=== PATIENT | female | born 1985 | race Caucasian/White ===

== ENCOUNTER 2018-12-25 14:07 | Emergency (ER) | payer OTHER ==
[2018-12-25 14:24] VITALS: BP 138/88
--- NOTE | 2018-12-25 15:22 | ED Physician Documentation ---
History of Present Illness - Stated complaint Stated Complaint: SORES ON LT LEG/RT ARM - Chief complaint Chief Complaint: Laceration - Additonal information Additional information: This is a 33 year old female who presents with over 1 week of several sores on her left upper leg, as well as a pustule on her right shoulder. She has a history of a past MRSA infection over her knee that was treated successfully with antibiotics. Her current lesions began in the absence of trauma or obvious MRSA exposure. She denies fever. One of the lesions has drained a small amount of pus. She is in minimal discomfort. Review of Systems Constitutional: denies: Fever Throat: denies: Oral lesions / sores Skin: reports: Lesions Immunocompromised: denies: Immunocompromised PD PAST MEDICAL HISTORY - Present Medications Home Medications: Ambulatory Orders Medication Instructions Recorded Confirmed RX: Doxycycline Hyclate 100 mg PO BID #20 tablet 12/25/18 RX: Spironolactone 100 mg PO 12/25/18 - Allergies Allergies/Adverse Reactions: Allergies Allergy/AdvReac Type Severity Reaction Status Date / Time No Known Drug Allergies Allergy Verified 12/25/18 14:24 PD ED PE NORMAL - Vitals Vital signs reviewed: Yes - General General: Alert and oriented X 3, No acute distress - HEENT HEENT: PERRL - Cardiac Cardiac: RRR, No murmur - Respiratory Respiratory: No respiratory distress - Abdomen Abdomen: Non distended - Derm Derm: Other (A 4mm pusutle is present over the right shoulder. Over the left upper thigh (exam performed with RN broaching machine operator, there are two 0.5-1cm slightly excoriated shallow ulcerations with minimal surrounding erythema and induration. No fluctuance, no drainage.) - Extremities Extremities: No deformity - Neuro Neuro: Alert and oriented X 3 - Psych Psych: Normal mood, Normal affect Results - Vitals Vitals: Vital Signs - 24 hr 12/25/18 14:22 Temperature 36.7 C Heart Rate 82 Respiratory 16 Rate Blood Pressure 138/88 H O2 Saturation 99 Oxygen O2 Source Room air PD MEDICAL DECISION MAKING - ED course Complexity details: considered differential ED course: Patient is presenting with several lesions that started as pustules. She has a history of MRSA skin infections and it is likely that these lesions are also due to MRSA. There are no signs of abscess or active purulent drainage from any of the lesions. Her vital signs are unremarkable and she is very well appearing. She is on spironolactone, making bactrim a poor choice for treatment, so we will treat with a course of doxycycline. I discussed hygiene, return precautions, and close follow up with her PCP. Patient agrees and was discharged home. Departure - Departure Disposition: 01 Home, Self Care Clinical Impression: Wound of skin Condition: Good Instructions: ED Wound Care Follow-Up: Your,PCP [Other] (In 1-2 weeks for recheck of wound) Prescriptions: RX: Doxycycline Hyclate 100 mg PO BID #20 tablet Comments: You were seen for infections on your skin, these are likely MRSA infections. Please take the entire antibiotic as instructed. Follow-up with your primary care provider. If you have worsening symptoms fever, or lesions that are growing significantly please return to [facility] department. Discharge Date/Time: 12/25/18 17:01
== END 2018-12-25 17:01 | disposition home or self-care (01) ==
LOC: ED 14:07
DX: L97.129 Non-pressure chronic ulcer of left thigh with unspecified severity (principal); L08.9 Local infection of the skin and subcutaneous tissue, unspecified; Z86.14 Personal history of Methicillin resistant Staphylococcus aureus infection
CPT/HCPCS: 99282; 99284